=== PATIENT | female | born 1980 | race Caucasian/White ===

== ENCOUNTER 2018-06-20 18:26 | Emergency (ER) | payer BC ==
[~2018-06-20] VITALS: Ht 165.1 cm; Wt 72.6 kg
[2018-06-20 18:29] VITALS: BP_SYST 126
--- NOTE | 2018-06-20 18:32 | NUR ---
Patient to ER bed 06 to gown for evaluation. Side rails up.
--- NOTE | 2018-06-20 18:40 | NUR ---
Patient brought in by self complaining pain to her right thumb and index for 10 days now worsening redness and swelling noted. Pain 4/10. No other complaints/injuries per patient or as noted. Will continue to monitor.
[2018-06-20] MEDS ORDERED: NACL 0.9% 1,000 ML IV ONE (18:51)
--- NOTE | 2018-06-20 18:53 | NUR ---
ER Dr. Perry at bedside examining patient.
[2018-06-20] MEDS ORDERED: LIDOCAINE 1% 10 MG/ML, 20 ML MDV IJ ONE (19:00)
[2018-06-20] MEDS ORDERED: CLINDAMYCIN 600 MG in D5W 50 ML IV ONE (19:00)
[2018-06-20] MEDS ORDERED: BACITRACIN 1 GM OINT TP ONE (19:00)
--- NOTE | 2018-06-20 19:17 | NUR ---
report given to PAULINA Phoenix
[2018-06-20 19:22] LABS: BASOPHILS % (AUTO) 0.3 % (0.0-2.0); HEMATOCRIT 37.7 % (36-48); HEMOGLOBIN 13.1 g/dL (12.0-16.0); LYMPHOCYTES # (AUTO) 1.2 K/uL (1.0-5.5); LYMPHOCYTES % (AUTO) 40.1 % (20.5-51.5); MEAN CORPUSCULAR HEMOGLOBIN 31 pg (27-31); MEAN CORPUSCULAR HGB CONC 35 % (32-36); MEAN CORPUSCULAR VOLUME 89 fL (79.0-98.0); MONOCYTES # (AUTO) 0.4 K/uL (0.0-1.0); MONOCYTES % (AUTO) 13.6 % (1.7-9.3); NEUTROPHILS # (AUTO) 1.3 K/uL (1.8-7.7); PLATELET COUNT (AUTO) 167 K/uL (130-430); RED BLOOD CELL COUNT(AUTO) 4.23 MIL/uL (4.2-6.2); RED CELL DISTRIBUTION WIDTH 12.2 % (9.0-15.0); WHITE BLOOD COUNT (AUTO) 2.9 K/uL (4.8-10.8)
--- NOTE | 2018-06-20 19:25 | NUR ---
Dr. Perry at bedside performing I&D. Scant amount of clear fluid drained from abcesses distal fingers 2 and 4 of RHA. Pt tolerated fair.
[2018-06-20] MEDS ORDERED: CLINDAMYCIN 600 mg/50mL D5W 50 ML IV ONE (19:26)
[2018-06-20] MEDS ORDERED: MORPHINE 4 MG/ML INJ. SYRINGE IVP ONE (19:30)
[2018-06-20] MEDS ORDERED: ONDANSETRON HCL 4 MG/2 ML VIAL IVP ONE (19:45)
[2018-06-20] MEDS ORDERED: ONDANSETRON HCL 4 MG/2 ML VIAL ONE (19:51)
[2018-06-20 20:50] VITALS: BP_SYST 124
--- NOTE | 2018-06-20 20:50 | NUR ---
Patient given written and verbal discharge instructions and verbalizes understanding. ER MD discussed with patient the results and treatment provided. Patient in stable condition. ID arm band removed. IV catheter removed intact and dressing applied, no active bleeding. Rx of Tylenol given. Patient educated on pain management and to follow up with PMD. Pain Scale 3/10. Opportunity for questions provided and answered. Medication side effect fact sheet provided.
== END 2018-06-20 20:50 | disposition home or self-care (01) ==
LOC: SED 18:26
DX: L03.011 Cellulitis of right finger (principal)
CPT/HCPCS: 10061; 36415; 83605; 85025; 87040; 96365; 96375; 99284; J2270; J2405; J3490; J7030; 99283